=== PATIENT | female | born 1980 | race Caucasian/White ===

== ENCOUNTER 2018-08-20 09:51 | Inpatient (IN) | payer OTHER ==
[~2018-08-20] VITALS: Ht 154.9 cm; Wt 86.5 kg
[2018-08-20 09:59] VITALS: Ht 154.9 cm; Wt 86.5 kg
[2018-08-20] MEDS ORDERED: ONDANSETRON (ODT) 4 MG TAB ODT ONE (10:00)
[2018-08-20] MEDS ORDERED: morphine 4 MG/ML VIAL IM ONE (10:00)
[2018-08-20] MEDS ORDERED: ONDANSETRON 4 MG INJ IV STA (10:06)
[2018-08-20] MEDS ORDERED: morphine 4 MG/ML VIAL IV STA (10:06)
[2018-08-20] MEDS ORDERED: morphine 10 MG INJ IV STA (10:08)
[2018-08-20] MEDS ORDERED: morphine 10 MG INJ ONE (10:11)
--- NOTE | 2018-08-20 10:20 | ERD ---
ER Documentation Chief Complaint Chief Complaint BIBA, R ANKLE PAIN D/T TRIPPED FEW MIN AGO, CRYING HPI 37-year-old female with a history of developmental delay presents for a mechanical fall. Patient turned her right ankle, presents brought in by EMS in tears. She had no abrasions or lacerations. She is nonverbal at baseline, history limited, majority of history was obtained from family member. ROS All systems reviewed and are negative except as per history of present illness. Medications Home Meds Reported Medications Oxcarbazepine* (Oxcarbazepine*) 600 Mg Tablet, 1200 MG PO QPM, TAB 08/20/18 Oxcarbazepine* (Oxcarbazepine*) 600 Mg Tablet, 600 MG PO QAM, TAB 08/20/18 Zonisamide* (Zonisamide*) 100 Mg Capsule, 300 MG PO BID, CAP 08/20/18 Alendronate Sodium* (Fosamax*) 70 Mg Tablet, 70 MG PO Q SUN, #4 TAB 08/20/18 Ergocalciferol (Vitamin D2) (VITAMIN D2) 50,000 Unit Capsule, 19845 UNIT PO Q SUN, CAP 08/20/18 Lamotrigine* (Lamictal* XR) 25 Mg Tab.er.24, 25 MG PO BID, TAB 08/20/18 Lamotrigine* (Lamictal*) 200 Mg Tablet, 200 MG PO BID, TAB 08/20/18 Allergies Allergies: Coded Allergies: No Known Allergy (Unverified , 08/20/18) Physical Exam Vitals Vital Signs Date Temp Pulse Resp B/P (MAP) Pulse Ox O2 O2 Flow FiO2 Time Delivery Rate 08/20/18 98.8 90 22 127/54 99 09:59 (78) Physical Exam Const: [Well-developed, well-nourished, abnormal facises noted, Head: Atraumatic Eyes: Normal conjunctiva ENT: Normal external ears, nose and mouth. Neck: Resp: Normal respiratory effort Cardio: Abd: Skin: Back: Ext: There is swelling and tenderness over the ankle, on the lateral and medial side, there is no tenderness of the knee. Pulses intact distally, there is no abrasions or lacerations, compartments are soft and easily compressible. There is no foot tenderness, Neur: Awake and alert Psych: Normal mood and affect Results 24 hrs Current Medications Medications Dose Sig/Latasha Start Time Status Last (Trade) Ordered Route PRN Stop Time Admin Dose Reason Admin Morphine 6 mg ONCE ONCE 08/20/18 DC Sulfate IM 10:00 (morphine) 08/20/18 10:08 Ondansetron 4 mg ONCE ONCE 08/20/18 DC HCl (Zofran ODT 10:00 Odt) 08/20/18 10:08 Morphine 4 mg ONCE STAT 08/20/18 DC Sulfate IV 10:06 (morphine) 08/20/18 10:10 Ondansetron 4 mg ONCE STAT 08/20/18 DC 08/20/18 HCl (Zofran IV 10:06 10:12 Inj) 08/20/18 10:09 Morphine 6 mg ONCE STAT 08/20/18 DC 08/20/18 Sulfate IV 10:08 10:12 (morphine) 08/20/18 10:10 Morphine 10 mg STK-MED 08/20/18 DC Sulfate ONCE .ROUTE 10:11 (morphine) 08/20/18 10:12 25 mg ONCE STAT 08/20/18 DC 08/20/18 Diphenhydrami IV 10:42 10:49 ne HCl 08/20/18 10:45 (Benadryl) 50 mg STK-MED 08/20/18 DC Diphenhydrami ONCE .ROUTE 10:45 ne HCl 08/20/18 10:46 (Benadryl) Procedures/MDM 37-year-old female presents for evaluation of ankle pain status post mechanical fall. Patient has no neurovascular deficits, her x-ray is consistent with distal fibula and tibia. X-ray Ankle 3V Interpreted by me: Bones: There is a notable distal fibula and tibia fracture, with mild displacement Joints: No dislocation Foreign Body: None EKG: Indication: Preop assessment. Rate/Rhythm: Normal Sinus Rhythm QRS, ST, T-waves: T wave inversions noted inferiorly no changes consistent w/ acute ischemia Impression: No evidence of ischemia or arrhythmia Splint Assessment: Neurovascularly intact post splint placement with good fit. Total 12:02 PM: Case discussed with orthopedic surgeon business solutions director, recommended admission for likely open reduction, with internal fixation. Patient will be admitted to [facility] Care Team: Current data and ongoing care discussed. Primary: Hospitalist Consulting: Lashaun Outstanding Data: none Departure Diagnosis: Primary Impression: Ankle fracture Encounter type: initial encounter Fracture type: closed Laterality: right Qualified Codes: S82.891A - Other fracture of right lower leg, initial encounter for closed fracture Condition: Stable SHAUNA ARMSTRONG MD Aug 20, 2018 10:20
[2018-08-20] MEDS ORDERED: DIPHENHYDRAMINE 50 MG INJ IV STA (10:42)
[2018-08-20] MEDS ORDERED: DIPHENHYDRAMINE 50 MG INJ ONE (10:45)
[2018-08-20] MEDS ORDERED: LAMO25TA6 PO (11:31)
[2018-08-20] MEDS ORDERED: LAMO200T3 PO (11:31)
[2018-08-20] MEDS ORDERED: ALEN70TA5 PO (11:32)
[2018-08-20] MEDS ORDERED: ERGO500013 PO (11:32)
[2018-08-20] MEDS ORDERED: ZONI100C48 PO (11:33)
[2018-08-20] MEDS ORDERED: OXCA600T30 PO ×2 (11:35)
[2018-08-20] MEDS ORDERED: ONDANSETRON 4 MG INJ IV PRN ×2 (12:30→13:30)
[2018-08-20] MEDS ORDERED: ACETAMINOPHEN 325 MG TAB PO PRN ×2 (12:30→13:30)
--- NOTE | 2018-08-20 12:37 | CONS ---
Assessment/Plan Assessment/Plan Hospital Course (Demo Recall) 37-year-old female with medical history significant for develop mental delay and seizures with a right trimalleolar ankle fracture. The fracture is minimally displaced, however, the fracture is an unstable pattern. Discussed nonoperative and operative treatments with the mother. I recommended operative fixation of the medial and lateral malleolus in order to obtain a stable ankle joint. The patient secondary to severe developmental delay will likely not be able to be compliant with weightbearing restrictions. Therefore fixation with casting will be the best option for her. Reviewed the benefits and risks with the mother which include but not limited to medical complications, anesthesia complications, nonunion, malunion, hardware failure, neurovascular injury, need to remove hardware, infection, bleeding. She understood these and wished to proceed with surgery. The hospitalist service is admitting the patient and will proceed appropriate work-up for medical optimization. Will plan on open reduction internal fixation of the right ankle fracture tomorrow around 1 PM pending or availability N.p.o. at midnight Elevate and ice Pain control Nonweightbearing right lower extremity Consultation Date/Type/Reason Admit Date/Time Date of Consultation: Aug 20, 2018 Reason for Consultation Right ankle fracture Date/Time of Note DATE: 08/20/18 TIME: 12:29 Hx of Present Illness 29-year-old female medical history significant for developmental delay and seizures presented to the emergency department today after ground-level fall. Her mom brought her to the emergency room secondary to increased pain. The patient is nonverbal. The patient does walk without any assistance or gait aids at baseline. Patient requires full-time care secondary to developmental delay. Patient was found to have a right trimalleolar ankle fracture. Orthopedics was consulted. Patient seizures are relatively well controlled now. Her last se izure was 6 months ago which is much less frequent than prior history. Unable to ask patient further history of present illness questions including pain level, location, and sensation secondary to patient's nonverbal status. Per the mom there is no known syndrome. Unable to obtain secondary to patient's developmental delay Past Medical History Developmental delay Seizures Home Meds Reported Medications Oxcarbazepine* (Oxcarbazepine*) 600 Mg Tablet, 1200 MG PO QPM, TAB 08/20/18 Oxcarbazepine* (Oxcarbazepine*) 600 Mg Tablet, 600 MG PO QAM, TAB 08/20/18 Zonisamide* (Zonisamide*) 100 Mg Capsule, 300 MG PO BID, CAP 08/20/18 Alendronate Sodium* (Fosamax*) 70 Mg Tablet, 70 MG PO Q SUN, #4 TAB 08/20/18 Ergocalciferol (Vitamin D2) (VITAMIN D2) 50,000 Unit Capsule, 75442 UNIT PO Q SUN, CAP 08/20/18 Lamotrigine* (Lamictal* XR) 25 Mg Tab.er.24, 25 MG PO BID, TAB 08/20/18 Lamotrigine* (Lamictal*) 200 Mg Tablet, 200 MG PO BID, TAB 08/20/18 Medications Current Medications Ondansetron HCl (Zofran Inj) 4 mg BRIDGE ORDER PRN IV NAUSEA/VOMITING; Start 08/20/18 at 12:30; Stop 08/21/18 at 12:29 Acetaminophen (Tylenol Tab) 650 mg ER BRIDGE PRN PO .MILD PAIN 1-3 OR TEMP; Start 08/20/18 at 12:30; Stop 08/21/18 at 12:29 Allergies: Coded Allergies: No Known Allergy (Unverified , 08/20/18) Past Surgical History Spine surgery at 8 months old Family History Significant Family History: no pertinent family hx Social History Alcohol Use: none Smoking Status: Never smoker Drug Use: none Exam/Review of Systems Exam Vitals Vital Signs Date Temp Pulse Resp B/P (MAP) Pulse Ox O2 O2 Flow FiO2 Time Delivery Rate 08/20/18 98.8 77 20 106/45 100 Room Air 12:22 (65) Exam General: Awake, alert, in no acute distress, pleasant and cooperative Heart: regular rhythm Lungs: breathing comfortably, no tachypnea or dyspnea MUSCULOSKELETAL: Right lower extremity: Skin is intact. There is swelling and ecchymosis along the medial lateral aspect of the ankle. There is tenderness palpation throughout the ankle. There is brisk cap refill. Unable to test motor and sensation secondary to patient's inability to follow commands and communicate. Imaging Imaging 3 views of the right knee, 2 views of the right tib-fib, 3 views of the right ankle, 3 views of the right foot were personally reviewed. Demonstrate a trimalleolar fracture with minimally displaced distal fibula fracture, minimally displaced transverse medial malleolus fracture, minimally displaced and small posterior malleolus fracture. The fibula fracture is at the level of the syndesmosis, Mortensen B. Syndesmosis appears to be intact on x-ray. There is slight widening of the medial clear space. Otherwise the tibial talar joint is well reduced. Medications Medication Current Medications Ondansetron HCl (Zofran Inj) 4 mg BRIDGE ORDER PRN IV NAUSEA/VOMITING; Start 08/20/18 at 12:30; Stop 08/21/18 at 12:29 Acetaminophen (Tylenol Tab) 650 mg ER BRIDGE PRN PO .MILD PAIN 1-3 OR TEMP; Start 08/20/18 at 12:30; Stop 08/21/18 at 12:29 JAYCEE BERRIOS MD Aug 20, 2018 12:37
--- NOTE | 2018-08-20 13:01 | HP ---
Date/Time of Note Date/Time of Note DATE: 08/20/18 TIME: 13:00 Assessment/Plan VTE Prophylaxis Pharmacological prophylaxis: NA/contraindicated Pharm contraindication: surgical contra Lines/Catheters [facility] Saline Lock Assessment/Plan Hospital Course 37-year-old female with comorbidities including seizure disorder, obesity, and developmental delay who had a mechanical fall with resultant right trimalleolar ankle fracture, who will be admitted to inpatient setting for further treatment and evaluation. 1. Right trimalleolar ankle fracture. Status post evaluation by orthopedic surgery who recommended open reduction internal fixation. Continue pain control. Continue nonweightbearing of the right lower extremity. 2. Seizure disorder. Resume the patient's anticonvulsants. Seizure precautions. 3. Obesity. BMI 37 kg/m. Obtain hemoglobin A1c, thyroid panel, and lipid panel. 4. Developmental delay. Continue supportive care. Plan: The patient will be admitted to inpatient medical surgical floor. The patient will be started on a regular diet. The patient will be started on DVT prophylaxis. The patient will remain a full code. Activities will be bedrest. The rest of the patient's management will be based on the clinical course, inputs from consultants, and the results of diagnostic studies. Based on the patient's clinical presentation, she most probably requires more than 2 midnights' stay for further management and evaluation of her clinical presentation. The patient was seen in collaboration with Dr. Merrill. Result Diagram: 08/20/18 1001 Results 24hrs Laboratory Tests Test 08/20/18 10:01 White Blood Count 11.1 H Red Blood Count 3.98 L Hemoglobin 12.0 Hematocrit 37.1 Mean Corpuscular Volume 93.2 Mean Corpuscular Hemoglobin 30.2 Mean Corpuscular Hemoglobin Concent 32.3 Red Cell Distribution Width 13.3 Platelet Count 296 Mean Platelet Volume 12.7 H Immature Granulocytes % 0.900 H Neutrophils % 76.6 Lymphocytes % 14.9 L Monocytes % 6.6 Eosinophils % 0.6 Basophils % 0.4 Nucleated Red Blood Cells % 0.0 Immature Granulocytes # 0.100 H Neutrophils # 8.5 H Lymphocytes # 1.7 Monocytes # 0.7 Eosinophils # 0.1 Basophils # 0.0 Nucleated Red Blood Cells # 0.0 Prothrombin Time 13.1 Prothrombin Time Ratio 1.0 INR International Normalized Ratio 0.98 HPI/ROS Admit Date/Time Admit Date/Time Hx of Present Illness This is a 37-year-old female with underlying history of seizure disorder and who is developmentally delayed. The patient had a a mechanical fall at home with impact to the right lower extremity. The patient was brought to the emergency room by paramedics. There was no reported head trauma. The patient has impaired speech and therefore details were obtained by talking to the patient's mother and by reviewing the ER records. The patient's radiographic findings showed acute mildly comminuted displaced distal fibula fracture at the level of the angle of mortise along with acute mildly displaced medial and posterior mal leolus fracture. The patient was evaluated by orthopedic surgery in the emergency room and recommended surgical repair. ROS Subjective hx not possible: pt non-verbal PMH/Family/Social Past Medical History 1. Developmentally delayed. 2. Seizure disorder. 3. Obesity. Medications Current Medications Ondansetron HCl (Zofran Inj) 4 mg BRIDGE ORDER PRN IV NAUSEA/VOMITING; Start 08/20/18 at 12:30; Stop 08/21/18 at 12:29 Acetaminophen (Tylenol Tab) 650 mg ER BRIDGE PRN PO .MILD PAIN 1-3 OR TEMP; Start 08/20/18 at 12:30; Stop 08/21/18 at 12:29 Coded Allergies: No Known Allergy (Unverified , 08/20/18) Past Surgical History 1. Abdominal surgery. Family History Significant Family History: no pertinent family hx Social History The patient is developmentally delayed and her mother takes care of her. Alcohol Use: none Smoking Status: Never smoker Drug Use: none Exam/Review of Systems Vital Signs Vitals Vital Signs Date Temp Pulse Resp B/P (MAP) Pulse Ox O2 O2 Flow FiO2 Time Delivery Rate 08/20/18 98.8 77 20 106/45 100 Room Air 12:22 (65) Exam Exam General: Obese 37 year-old female lying in bed in no apparent distress. HEENT: Atraumatic. Eyes: Anicteric sclerae, conjunctivae clear. ENT: Nasal septum is midline, oral mucosa is dry. Poor dentition. Neck: Short neck. Respiratory: Bilaterally clear breath sounds. No use of accessory muscles of respiration. No adventitious breath sounds. Cardiovascular: S1, S2 heard. Regular rate and rhythm. Abdomen: Soft, nontender, and nondistended. Bowel sounds positive in all 4 quadrants. Genitourinary: Deferred. Extremities: No cyanosis, no clubbing. Right lower extremity plaster cast in place. Peripheral pulses palpable. Neurologic: The patient is awake and alert. Developmentally delayed. Incomprehensible speech/sounds. Skin: Normal skin turgor. No skin rashes. Additional Comments XR Right Tibia & Fibula IMPRESSION: 1. Acute comminuted mildly displaced distal fibular fracture at the level of the ankle mortise. 2. Acute mildly displaced medial and posterior malleolar fractures. 3. Significant soft tissue swelling. HOMER QUINN NP Aug 20, 2018 13:01
[2018-08-20] MEDS ORDERED: morphine 2 MG INJ IV PRN (13:30)
[2018-08-20] MEDS ORDERED: NACL 0.9% 3 ML SYG IV SCH (13:30)
[2018-08-20 13:51] VITALS: BP 102/66; PULSE 77; RESP 17
--- NOTE | 2018-08-20 15:55 | RADRPT ---
Vent Rate: 74 bpm RR Interval: 812 msec MO Interval: 198 msec QRS Duration: 89 msec QT Interval: 412 msec QTC Interval: 457 msec P-R-T [place]: 45 - 42 - 53 degrees Sinus rhythm...normal P axis, V-rate 50- 99 Low voltage, precordial leads...precordial leads <1.0mV Electronically Signed By: Bharat Arcos
[2018-08-20 20:11] VITALS: BP 104/55; PULSE 77; RESP 18
[2018-08-20] MEDS: LAMOTRIGINE 100 MG TAB PO SCH (22:06)
[2018-08-20] MEDS: ZONISAMIDE 100 MG CAP PO SCH (22:06)
[2018-08-20] MEDS: OXCARBAZEPINE 300 MG TAB PO SCH (22:47)
[2018-08-21 01:39] VITALS: BP 102/59; PULSE 82; RESP 18
[2018-08-21 08:21] VITALS: BP 106/73; PULSE 73; RESP 17
[2018-08-21] MEDS: OXCARBAZEPINE 300 MG TAB PO SCH ×2 (09:39→21:29)
[2018-08-21] MEDS: ZONISAMIDE 100 MG CAP PO SCH ×2 (09:40→21:30)
[2018-08-21] MEDS: LAMOTRIGINE 100 MG TAB PO SCH ×2 (09:40→21:29)
[2018-08-21 15:00] VITALS: BP 124/66; PULSE 65; RESP 17
--- NOTE | 2018-08-21 15:23 | PN ---
Date/Time of Note Date/Time of Note DATE: 08/21/18 TIME: 15:19 Assessment/Plan VTE Prophylaxis Risk score (from Ns)>0 risk: 11 SCD applied (from Ns): No SCD contraindicated: other Pharmacological prophylaxis: other (plan for surgery) Lines/Catheters IV [facility] Peripheral IV Urinary Cath still in place: Yes Reason Cath still needed: other (indicate) (monitor I&O) Assessment/Plan Hospital Course 1. Right trimalleolar ankle fracture. plan for open reduction internal fixation per sureon Continue analgesics nonweightbearing of the right lower extremity. 2. Seizure disorder. continue anticonvulsants. Seizure precautions. 3. Obesity. BMI 37 kg/m. 4. Developmental delay. Continue supportive care. Disposition and plan. Was plan for surgery today however fluoroscopy not available. Will place n.p.o. after midnight. Tentative plan for surgical intervention August 22, 2018. Discussed POC with Dr. Nash Result Diagram: 08/21/18 0506 08/21/18 0506 Results 24hrs Laboratory Tests Test 08/21/18 05:06 White Blood Count 11.1 H Red Blood Count 3.73 L Hemoglobin 11.1 L Hematocrit 34.1 L Mean Corpuscular Volume 91.4 Mean Corpuscular Hemoglobin 29.8 Mean Corpuscular Hemoglobin Concent 32.6 Red Cell Distribution Width 13.2 Platelet Count 276 Mean Platelet Volume 11.9 H Immature Granulocytes % 0.500 H Neutrophils % 81.3 H Lymphocytes % 11.1 L Monocytes % 6.7 Eosinophils % 0.1 Basophils % 0.3 Nucleated Red Blood Cells % 0.0 Immature Granulocytes # 0.050 H Neutrophils # 9.0 H Lymphocytes # 1.2 Monocytes # 0.7 Eosinophils # 0.0 Basophils # 0.0 Nucleated Red Blood Cells # 0.0 Sodium Level 139 Potassium Level 4.1 Chloride Level 111 H Carbon Dioxide Level 19 L Anion Gap 9 Blood Urea Nitrogen 13 Creatinine 0.49 Est Glomerular Filtrat Rate mL/min > 60 Glucose Level 130 Calcium Level 9.1 Phosphorus Level 2.7 Magnesium Level 1.8 Total Bilirubin 0.3 Direct Bilirubin 0.00 Indirect Bilirubin 0.3 Aspartate Amino Transf (AST/SGOT) 18 Alanine Aminotransferase (ALT/SGPT) 17 Alkaline Phosphatase 100 Total Protein 7.5 Albumin 4.1 Globulin 3.40 H Albumin/Globulin Ratio 1.20 Triglycerides Level 123 Cholesterol Level 182 LDL Cholesterol, Calculated 111 HDL Cholesterol 46 Cholesterol/HDL Ratio 3.9 Subjective 24 Hr Interval Summary Free Text/Dictation Alert appears to be confused at baseline. Likely from her known developmental delay. No signs or symptoms of pain at this time. Family at bedside. Exam/Review of Systems Exam Vitals Vital Signs Date Temp Pulse Resp B/P (MAP) Pulse Ox O2 O2 Flow FiO2 Time Delivery Rate 08/21/18 97.7 65 17 124/66 96 Room Air 15:00 (85) Intake and Output 08/20/18 08/20/18 08/21/18 1515:00 23:00 07:00 IntakeIntake Total 360 ml OutputOutput Total 750 ml 850 ml BalanceBalance -390 ml -850 ml Constitutional: alert; No oriented Respiratory: clear to auscultation, normal air movement Cardiovascular: regular rate and rhythm Gastrointestinal: soft Musculoskeletal: other (rle with dressing) Results Results 24hrs Laboratory Tests Test 08/21/18 05:06 White Blood Count 11.1 H Red Blood Count 3.73 L Hemoglobin 11.1 L Hematocrit 34.1 L Mean Corpuscular Volume 91.4 Mean Corpuscular Hemoglobin 29.8 Mean Corpuscular Hemoglobin Concent 32.6 Red Cell Distribution Width 13.2 Platelet Count 276 Mean Platelet Volume 11.9 H Immature Granulocytes % 0.500 H Neutrophils % 81.3 H Lymphocytes % 11.1 L Monocytes % 6.7 Eosinophils % 0.1 Basophils % 0.3 Nucleated Red Blood Cells % 0.0 Immature Granulocytes # 0.050 H Neutrophils # 9.0 H Lymphocytes # 1.2 Monocytes # 0.7 Eosinophils # 0.0 Basophils # 0.0 Nucleated Red Blood Cells # 0.0 Sodium Level 139 Potassium Level 4.1 Chloride Level 111 H Carbon Dioxide Level 19 L Anion Gap 9 Blood Urea Nitrogen 13 Creatinine 0.49 Est Glomerular Filtrat Rate mL/min > 60 Glucose Level 130 Calcium Level 9.1 Phosphorus Level 2.7 Magnesium Level 1.8 Total Bilirubin 0.3 Direct Bilirubin 0.00 Indirect Bilirubin 0.3 Aspartate Amino Transf (AST/SGOT) 18 Alanine Aminotransferase (ALT/SGPT) 17 Alkaline Phosphatase 100 Total Protein 7.5 Albumin 4.1 Globulin 3.40 H Albumin/Globulin Ratio 1.20 Triglycerides Level 123 Cholesterol Level 182 LDL Cholesterol, Calculated 111 HDL Cholesterol 46 Cholesterol/HDL Ratio 3.9 Medications Medication Current Medications Lamotrigine (Lamictal) 200 mg BID PO Last administered on 08/21/18 09:40; Admin Dose 200 MG; Start 08/20/18 at 21:00 Oxcarbazepine (Trileptal) 1,200 mg QPM PO Last administered on 08/20/18at 22:47; Admin Dose 1,200 MG; Start 08/20/18 at 21:00 Oxcarbazepine (Trileptal) 600 mg QAM PO Last administered on 08/21/18at 09:39; Admin Dose 600 MG; Start 08/21/18 at 09:00 Zonisamide (Zonegran) 300 mg BID PO Last administered on 08/21/18 09:40; Admin Dose 300 MG; Start 08/20/18 at 21:00 IV Flush (NS 3 ml) 3 ml PER PROTOCOL IV ; Start 08/20/18 at 13:30 Ondansetron HCl (Zofran Inj) 4 mg Q6H PRN IV NAUSEA/VOMITING; Start 08/20/18 at 13:30 Acetaminophen (Tylenol Tab) 650 mg Q6H PRN PO .PAIN 1-3 OR TEMP; Start 08/20/18 at 13:30 Acetaminophen/ Hydrocodone Bitart ([place] (5/325)) 1 tab Q6H PRN PO .MOD PAIN 4- 6; Start 08/20/18 at 13:30 Morphine Sulfate (morphine) 2 mg Q4H PRN IV .SEVERE PAIN 7-10 Last administered on 08/21/18 09:31; Admin Dose 2 MG; Start 08/20/18 at 13:30 MI VERA NP Aug 21, 2018 15:23
[2018-08-21 19:46] VITALS: BP 105/60; PULSE 84; RESP 17
[2018-08-22] VITALS (15 sets, daily range): BP systolic 104–131; BP diastolic 54–80; PULSE 80–106; RESP 17–22
[2018-08-22] MEDS: ZONISAMIDE 100 MG CAP PO SCH ×2 (09:00→23:56)
[2018-08-22] MEDS: OXCARBAZEPINE 300 MG TAB PO SCH ×2 (09:00→23:55)
[2018-08-22] MEDS: LAMOTRIGINE 100 MG TAB PO SCH ×2 (09:00→23:55)
--- NOTE | 2018-08-22 11:33 | PN ---
Date/Time of Note Date/Time of Note DATE: 08/22/18 TIME: 11:31 Assessment/Plan VTE Prophylaxis Risk score (from Ns)>0 risk: 11 SCD applied (from Ns): No SCD contraindicated: other Pharmacological prophylaxis: other (plan for surgery today ) Lines/Catheters IV [facility] Type [facility]from [facility] [place] Urinary Cath still in place: Yes Reason Cath still needed: other (indicate) (monitor I&O) Assessment/Plan Hospital Course 1. Right trimalleolar ankle fracture. plan for open reduction internal fixation per surgeon Continue analgesics nonweightbearing of the right lower extremity. 2. Seizure disorder. continue anticonvulsants. Seizure precautions. 3. Obesity. BMI 37 kg/m. 4. Developmental delay. Continue supportive care. Disposition and plan. . Tentative plan for surgical intervention August 22, 2018. continue pain management and supportive care. check AM labs Discussed POC with Dr. Nash Result Diagram: 08/22/18 0538 08/22/18 0538 Results 24hrs Laboratory Tests Test 08/22/18 05:38 White Blood Count 10.0 Red Blood Count 4.04 L Hemoglobin 12.0 Hematocrit 37.4 Mean Corpuscular Volume 92.6 Mean Corpuscular Hemoglobin 29.7 Mean Corpuscular Hemoglobin Concent 32.1 Red Cell Distribution Width 13.3 Platelet Count 277 Mean Platelet Volume 12.4 H Immature Granulocytes % 1.300 H Neutrophils % 65.0 Lymphocytes % 21.5 Monocytes % 10.6 Eosinophils % 1.1 Basophils % 0.5 Nucleated Red Blood Cells % 0.0 Immature Granulocytes # 0.130 H Neutrophils # 6.5 Lymphocytes # 2.2 Monocytes # 1.1 H Eosinophils # 0.1 Basophils # 0.1 Nucleated Red Blood Cells # 0.0 Sodium Level 139 Potassium Level 3.7 Chloride Level 107 Carbon Dioxide Level 22 Anion Gap 10 Blood Urea Nitrogen 14 Creatinine 0.59 Est Glomerular Filtrat Rate mL/min > 60 Glucose Level 102 Calcium Level 8.6 Subjective 24 Hr Interval Summary Free Text/Dictation alert, family at bedside. no s/s of distress Exam/Review of Systems Exam Vitals Vital Signs Date Temp Pulse Resp B/P (MAP) Pulse Ox O2 O2 Flow FiO2 Time Delivery Rate 08/22/18 97.8 82 20 109/62 99 07:42 (78) 08/21/18 Room Air 15:00 Intake and Output 08/21/18 08/21/18 08/22/18 1515:00 23:00 07:00 IntakeIntake Total 120 ml OutputOutput Total 300 ml 250 ml BalanceBalance 120 ml -300 ml -250 ml Constitutional: alert; No oriented Head: normocephalic Eyes: nl conjunctiva Respiratory: clear to auscultation, normal air movement Cardiovascular: other (regular rate ) Gastrointestinal: soft, non-tender Musculoskeletal: other (rle dressing in place ) Neurological: No nl mental status Results Results 24hrs Laboratory Tests Test 08/22/18 05:38 White Blood Count 10.0 Red Blood Count 4.04 L Hemoglobin 12.0 Hematocrit 37.4 Mean Corpuscular Volume 92.6 Mean Corpuscular Hemoglobin 29.7 Mean Corpuscular Hemoglobin Concent 32.1 Red Cell Distribution Width 13.3 Platelet Count 277 Mean Platelet Volume 12.4 H Immature Granulocytes % 1.300 H Neutrophils % 65.0 Lymphocytes % 21.5 Monocytes % 10.6 Eosinophils % 1.1 Basophils % 0.5 Nucleated Red Blood Cells % 0.0 Immature Granulocytes # 0.130 H Neutrophils # 6.5 Lymphocytes # 2.2 Monocytes # 1.1 H Eosinophils # 0.1 Basophils # 0.1 Nucleated Red Blood Cells # 0.0 Sodium Level 139 Potassium Level 3.7 Chloride Level 107 Carbon Dioxide Level 22 Anion Gap 10 Blood Urea Nitrogen 14 Creatinine 0.59 Est Glomerular Filtrat Rate mL/min > 60 Glucose Level 102 Calcium Level 8.6 Medications Medication Current Medications Lamotrigine (Lamictal) 200 mg BID PO Last administered on 08/21/18at 21:29; Admin Dose 200 MG; Start 08/20/18 at 21:00 Oxcarbazepine (Trileptal) 1,200 mg QPM PO Last administered on 08/21/18 21:29; Admin Dose 1,200 MG; Start 08/20/18 at 21:00 Oxcarbazepine (Trileptal) 600 mg QAM PO Last administered on 08/21/18at 09:39; Admin Dose 600 MG; Start 08/21/18 at 09:00 Zonisamide (Zonegran) 300 mg BID PO Last administered on 08/21/18 21:30; Admin Dose 300 MG; Start 08/20/18 at 21:00 IV Flush (NS 3 ml) 3 ml PER PROTOCOL IV ; Start 08/20/18 at 13:30 Ondansetron HCl (Zofran Inj) 4 mg Q6H PRN IV NAUSEA/VOMITING; Start 08/20/18 at 13:30 Acetaminophen (Tylenol Tab) 650 mg Q6H PRN PO .PAIN 1-3 OR TEMP; Start 08/20/18 at 13:30 Acetaminophen/ Hydrocodone Bitart ([place] (5/325)) 1 tab Q6H PRN PO .MOD PAIN 4- 6; Start 08/20/18 at 13:30 Morphine Sulfate (morphine) 2 mg Q4H PRN IV .SEVERE PAIN 7-10 Last administered on 08/21/18at 09:31; Admin Dose 2 MG; Start 08/20/18 at 13:30 MI VERA NP Aug 22, 2018 11:33
[2018-08-22] MEDS ORDERED: GLYCOPYRROLATE 0.4 MG INJ ONE (12:10)
[2018-08-22] MEDS ORDERED: DESFLURANE 15 MIN ONE (12:10)
[2018-08-22] MEDS ORDERED: DEXAMETHASONE 4 MG/ML 5 ML INJ ONE (12:10)
[2018-08-22] MEDS ORDERED: NEOSTIGMINE 3 MG/3 ML SYRINGE ONE (12:10)
[2018-08-22] MEDS ORDERED: ROCURONIUM 50 MG INJ ONE (12:10)
[2018-08-22] MEDS ORDERED: CEFAZOLIN 1 GM INJ ONE (12:10)
[2018-08-22] MEDS ORDERED: FENTAnyl 50 MCG/ML VIAL ONE ×3 (12:10→20:40)
[2018-08-22] MEDS ORDERED: ONDANSETRON 4 MG INJ ONE (12:10)
[2018-08-22] MEDS ORDERED: PROPOFOL 20 ML ONE (12:10)
[2018-08-22] MEDS ORDERED: MIDAZOLAM 1 MG/ML 2 ML INJ ONE (12:10)
[2018-08-22] MEDS ORDERED: ROPIVACAINE 0.5 % 30 ML VIAL ONE (12:11)
--- NOTE | 2018-08-22 16:31 | HPN ---
Date/Time of Note Date/Time of Note DATE: 08/22/18 TIME: 16:30 Interval H&P Admission Note Pt. seen H&P reviewed: No system changes MUSCULOSKELETAL: Right lower extremity Splint is clean, dry, intact. Unable to do a proper neurovascular examination secondary to patient's severe developmental delay. Patient does spontaneously wiggle toes. Brisk cap refill. JAYCEE BERRIOS MD Aug 22, 2018 16:31
--- NOTE | 2018-08-22 16:44 | PREAC ---
Date/Time of Note Date/Time of Note DATE: 08/22/18 TIME: 16:43 Anesthesia Eval and Record Evaluation Time Pre-Procedure Interview DATE: 08/22/18 TIME: 16:43 Age 37 Sex female NPO: 8 hrs Preoperative diagnosis right trimalleolar fracture Planned procedure ORIF OF RIGHT ANKLE TRIM. FX Past Medical History Past Medical History: Includes Neuro: Seizure disorder, Other (DEVELOPMENTAL DELAY) GI: Obesity Surgery & Anesthesia Issues No known issue Meds Anticoagulation: No Beta Marimar within 24 hr: No Reason Beta Marimar not given: Pt. not on B-Marimar Reported Medications Oxcarbazepine* (Oxcarbazepine*) 600 Mg Tablet, 1200 MG PO QPM, TAB 08/20/18 Oxcarbazepine* (Oxcarbazepine*) 600 Mg Tablet, 600 MG PO QAM, TAB 08/20/18 Zonisamide* (Zonisamide*) 100 Mg Capsule, 300 MG PO BID, CAP 08/20/18 Alendronate Sodium* (Fosamax*) 70 Mg Tablet, 70 MG PO Q SUN, #4 TAB 08/20/18 Ergocalciferol (Vitamin D2) (VITAMIN D2) 50,000 Unit Capsule, 70222 UNIT PO Q SUN, CAP 08/20/18 Lamotrigine* (Lamictal* XR) 25 Mg Tab.er.24, 25 MG PO BID, TAB 08/20/18 Lamotrigine* (Lamictal*) 200 Mg Tablet, 200 MG PO BID, TAB 08/20/18 Current Medications Lamotrigine (Lamictal) 200 mg BID PO Last administered on 08/21/18at 21:29; Admin Dose 200 MG; Start 08/20/18 at 21:00 Oxcarbazepine (Trileptal) 1,200 mg QPM PO Last administered on 08/21/18at 21:29; Admin Dose 1,200 MG; Start 08/20/18 at 21:00 Oxcarbazepine (Trileptal) 600 mg QAM PO Last administered on 08/21/18at 09:39; Admin Dose 600 MG; Start 08/21/18 at 09:00 Zonisamide (Zonegran) 300 mg BID PO Last administered on 08/21/18at 21:30; Admin Dose 300 MG; Start 08/20/18 at 21:00 IV Flush (NS 3 ml) 3 ml PER PROTOCOL IV ; Start 08/20/18 at 13:30 Ondansetron HCl (Zofran Inj) 4 mg Q6H PRN IV NAUSEA/VOMITING; Start 08/20/18 at 13:30 Acetaminophen (Tylenol Tab) 650 mg Q6H PRN PO .PAIN 1-3 OR TEMP; Start 08/20/18 at 13:30 Acetaminophen/ Hydrocodone Bitart ([place] (5/325)) 1 tab Q6H PRN PO .MOD PAIN 4- 6; Start 08/20/18 at 13:30 Morphine Sulfate (morphine) 2 mg Q4H PRN IV .SEVERE PAIN 7-10 Last administered on 08/21/18at 09:31; Admin Dose 2 MG; Start 08/20/18 at 13:30 Meds reviewed: Yes Allergies Coded Allergies: No Known Allergy (Unverified , 08/20/18) Allergies Reviewed: Yes Labs/Studies Labs Reviewed: Reviewed by anesthesiologist Result Diagram: 08/22/18 0538 08/22/18 0538 Laboratory Tests 08/22/18 05:38 test: Negative Studies: ECG (LOW VOLTAGE), CXR (NAPD) Pre-procedure Exam Last vitals Vital Signs Date Temp Pulse Resp B/P (MAP) Pulse Ox O2 O2 Flow FiO2 Time Delivery Rate 08/22/18 98.7 90 20 128/80 95 14:29 (96) 08/21/18 Room Air 15:00 Airway: Adequate mouth opening, Adequate thyromental dist Mallampati: Mallampati II Teeth: Normal Lung: Normal Heart: Normal ASA Physical Status ASA physical status: 2 Emergency: None Planned Anesthetic General/MAC: ETT Nerve block: Femoral (right), Sciatic (right) Planned Pain Management Single shot nerve block, Parenteral pain med Pre-operative Attestations Prior to commencing anesthesia and surgery, the patient was re-evaluated, there was verification of: *The patient's identity *The results of appropriate recent lab work and preoperative vital signs *The above evaluation not changing prior to induction *Anesthetic plan, risk benefits, alternative and complications discussed with patient/family; questions answered; patient/family understands, accepts and wishes to proceed. Philip Dennis M.D. Aug 22, 2018 16:44
[2018-08-22] MEDS ORDERED: LABETALOL HCL 20MG INJ IV PRN (17:00)
[2018-08-22] MEDS ORDERED: ALBUTEROL 0.083% (NEB) 2.5 MG/3 ML AMP HHN PRN (17:00)
[2018-08-22] MEDS ORDERED: MIDAZOLAM 1 MG/ML 2 ML INJ IV PRN (17:00)
[2018-08-22] MEDS ORDERED: IPRATROPIUM (NEB) 0.5 MG/2.5 ML AMP HHN PRN (17:00)
[2018-08-22] MEDS ORDERED: hydrALAzine 20 MG INJ IV PRN (17:00)
[2018-08-22] MEDS ORDERED: HYDROmorphONE 1 MG/5 ML IV SYRINGE IV PRN ×3 (17:00)
[2018-08-22] MEDS ORDERED: MEPERIDINE 25 MG INJ IV PRN (17:00)
[2018-08-22] MEDS ORDERED: OXYCODONE/ACETAMINOPHEN (5/325) TAB PO PRN ×2 (17:00)
[2018-08-22] MEDS ORDERED: FENTAnyl 50 MCG/ML VIAL IV PRN ×3 (17:00)
[2018-08-22] MEDS ORDERED: DIPHENHYDRAMINE 50 MG INJ IV PRN (17:00)
[2018-08-22] MEDS ORDERED: ONDANSETRON 4 MG INJ IV PRN (17:00)
[2018-08-22] MEDS ORDERED: EPHEDrine 25 MG/5 ML SYG IV PRN (17:00)
[2018-08-22] MEDS ORDERED: TRIMETHOBENZAMIDE 100 MG/ML VIAL IM PRN (17:00)
[2018-08-22] MEDS ORDERED: POLYMYXIN/BACITRACIN 1L IRRIG IRR ONE (18:44)
--- NOTE | 2018-08-22 22:33 | OPR ---
Date/Time of Note Date/Time of Note DATE: 08/22/18 TIME: 22:14 Operative Report Procedure Date: Aug 22, 2018 Preoperative Diagnosis Right trimalleolar ankle fracture Postoperative Diagnosis As above Operation/Procedure Performed Open reduction internal fixation of lateral malleolus and medial malleolus Intraoperative use of fluoroscopy Application of short leg fiberglass cast Surgeon see signature line Mdm Developer None Anesthesia Type: general Tourniquet Time: 120 Estimated Blood Loss: 0 - 10 ml's Transfusion none Specimen None Grafts/Implants [place] 4 hole distal lateral fibular plate 4.0 cannulated screws Complications none Pt Condition Post Procedure: stable Disposition: PACU Procedure Description Indications and consent: This is a 37-year-old female who unfortunately has severe developmental delay. She is nonverbal and cannot follow instructions. Her mother takes full care of her. She is completely dependent. She was walking Tuesday when she fell and twisted her ankle. Her mom knows she is in severe pain and has swelling and inability to walk. Prior to the fall the patient had no difficulty walking and walked all the time. They prevented the emergency department. Patient was diagnosed with a closed trimalleolar ankle fracture. Given the trimalleolar ankle fracture pattern this was unstable fracture pattern. I reviewed treatment options with patient's mother. Including nonoperative and operative. I felt that although the fracture is minimally displaced casting or long would not provide enough stability for the patient to heal. The patient would likely weight-bear through a cast given that she cannot follow instructions. Therefore recommended open reduction internal fixation followed by casting. I reviewed the benefits and risks with the patient's mother including but not limited to medical complications, anesthesia complications, nonunion, malunion, hardware failure, infection, injury to blood vessels and nerves, injury to muscles and tendons, symptomatic hardware, arthritis, need for further surgery. She understood these and wished to proceed with the procedure. I also discussed with the mother that given the patient's mental capacity it be very difficult to do a cast change in clinic and I am recommending return to the operating room for light sedation in order to perform a cast change and suture removal. This will occurred approximately 3 weeks postop. Procedure in detail: The patient was brought to the operating room. She was transferred from the hospital bed to the operating table. She was then given general anesthesia followed by regional block. The right lower extremity was prepped and draped in normal sterile fashion. A nonsterile tourniquet was placed prior to prepping and draping. A timeout was performed confirming patient's name, medical record number, diagnosis, procedure to be performed, and laterality procedure. 2 g of Ancef was dosed. At this time the extremity was exsanguinated with an Esmarch and the tourniquet was inflated to 250 mmHg. Fluoroscopy was used to oc out the joint line as well as the distal proximal extent of the fracture. The incision was marked along the fibula. A 10 cm incision was made along the fibula centered over the fracture. Sharp dissection was carried down to bone distally as this is safe. Proximally the deeper tissues were dissected using Metzenbaum scissors. The superficial peroneal nerve was not encountered. The fracture was identified. It was a large oblique segment going from posterior superior to anterior inferior. It was noted that the distal fibular diaphysis was extraordinarily small and the AP diameter. It was about two thirds the diameter of the plate. The fracture site was cleaned with a 15 blade. The fracture site was irrigated and hematoma was removed. The fracture is anatomically reduced with [id number] reduction clamp at this time a 3.5 mm lag screw by technique was placed. This lag screw had moderate purchase. Given the size of the oblique fragment is decided to attempt a second lag screw by technique. This was done however the purchase was less than ideal. The fracture was stable and the [id number] reduction clamps were removed. It was decided given the soft bone as well as only moderate purchase of the lag screws a distal fibular locking plate would be used. A 4 hole distal fibular locking plate fit very nicely. A contoured the fibula perfectly required no additional bending. This was K wire in place. Position was confirmed on fluoroscopy both AP and lateral. A distal nonlocking screw was placed followed by a nonlocking screw proximally to compress the plate down to bone. This was followed by 2 more unicortical screws in the distal fibula. These were placed as locking screws. 3 additional proximal screw holes were filled. Positioning of hardware was confirmed on AP and lateral. At this time attention turned towards the medial malleolus. A 5 cm incision was made over the medial malleolus. Dissection was carried down carefully to the fracture. The medial malleolus was extremely small. There was significant comminution of the medial cortex of the proximal portion of the medial malleolus the bone was very soft. Good compression cannot be obtained without malreduction. The fracture site was irrigated and all hematoma was removed. A dental pick was used to hold gentle reduction. A guidepin for the 4.0 cannulated screws was used to place a pin in the posterior colliculus. This was done under fluoroscopy confirming the position that it was not entering the joint. This was aimed anteriorly as well. A second pin was placed in parallel in the anterior colliculus. Fluoroscopy confirmed anatomic reduction of the medial malleolus on AP, mortise view, lateral. The near cortex was then drilled after measuring the guidepins. The appropriate length 4.0 partially-threaded cannulated screws were placed over the guide pins. Fluoroscopy again confirmed anatomic reduction. Guide pins removed. Of note a washer was placed for the posterior screw given the comminution and poor quality bone. Tourniquet was deflated. Tourniquet was up from 120 minutes. Lateral and medial incisions were closely irrigated. Deep layer was closed with 0 Vicryl in interrupted [id number] fashion. Subcutaneous tissues were closed with 2-0 Vicryl in interrupted fashion. The medial wound was closed with 2-0 Vicryl interrupted fashion. The skin was closed with 2-0 nylon vertical ma ttress sutures. The wounds were dressed with Xeroform, 4 x 4's, ABD, soft roll. All counts were correct x2. A stockinette was placed over the lower extremity followed by soft roll. Care was taken to pad bony problems including the heel and malleoli. Soft roll was placed from the distal foot up until the knee. 4 inch fiberglass roll was used to fashion a short leg fiberglass cast. Stockinette was folded back over the fiberglass followed by another layer of fiberglass. The ankle was kept in neutral during the cast application. Disposition: Patient was extubated transferred to PACU stable condition. She will likely be discharged home tomorrow or the following day. She is nonweightbearing on the right lower extremity. However it is unlikely she will be able to follow these instructions. I discussed the family that they need to try his hardest possible to advance her from walking too much on right lower extremity. I will see her in clinic in approximately 2 weeks for x-rays. If everything looks as expected we will return to the operating room at 3 weeks for removal of cast and sutures and reapplication of a short leg cast. This will be done as I do not believe the patient will tolerate removal of the cast and suture removal in clinic and reapplication of the cast. JAYCEE BERRIOS MD Aug 22, 2018 22:32
[2018-08-22] MEDS: CEFAZOLIN 2 GM/50 ML (PMX) 50 ML IVPB SCH (23:56)
[2018-08-23 00:05] VITALS: BP 110/60; PULSE 72; RESP 18
[2018-08-23] MEDS: CEFAZOLIN 2 GM/50 ML (PMX) 50 ML IVPB SCH ×2 (05:58→14:47)
[2018-08-23 07:25] VITALS: BP 112/64; PULSE 96; RESP 18
--- NOTE | 2018-08-23 07:50 | PN ---
Date/Time of Note Date/Time of Note DATE: 08/23/18 TIME: 07:48 Assessment/Plan Lines/Catheters IV Catheter Type (from Nrsg): Peripheral IV Rider in Place (from Nrsg): Yes Assessment/Plan Chief Complaint/Hosp Course 29-year-old female with severe developmental delay postop day #1 status post open reduction internal fixation right lateral and medial malleolar fracture. Per the mother the patient seems to be comfortable this morning with no significant pain. Continue postoperative antibiotics x24 hours from surgery SCDs and DVT prophylaxis while admitted. Nonweightbearing right lower extremity Physical therapy/Occupational Therapy Pain control Elevation of right lower extremity Discharge planningexpect discharge home today versus tomorrow. We will see the patient office in approximately 2 weeks Subjective 24 Hr Interval Summary Patient doing well No acute events overnight Pain is well controlled Exam/Review of Systems Vital Signs Vitals Vital Signs Date Temp Pulse Resp B/P (MAP) Pulse Ox O2 O2 Flow FiO2 Time Delivery Rate 08/23/18 97.6 96 18 112/64 97 Room Air 07:25 (80) Intake and Output 08/22/18 08/22/18 08/23/18 1515:00 23:00 07:00 IntakeIntake Total 2000 ml 480 ml OutputOutput Total 375 ml 900 ml BalanceBalance 1625 ml -420 ml Exam Free Text/Dictation Right lower extremity: Short leg cast: clean, dry, and intact, no erythema over exposed skin. Brisk cap refill. Detailed neurological examination not possible secondary to patient's inability to follow commands and understand instructions. Results Result Diagram: 08/23/18 0428 08/23/18 0428 JAYCEE BERRIOS MD Aug 23, 2018 07:50
[2018-08-23] MEDS: LAMOTRIGINE 100 MG TAB PO SCH ×2 (08:45→22:20)
[2018-08-23] MEDS: OXCARBAZEPINE 300 MG TAB PO SCH ×2 (08:45→22:20)
[2018-08-23] MEDS: ZONISAMIDE 100 MG CAP PO SCH ×2 (08:45→21:00)
[2018-08-23] MEDS ORDERED: ASPIRIN (EC) 81 MG TAB PO SCH (09:00)
--- NOTE | 2018-08-23 09:14 | PAC ---
Date/Time of Note Date/Time of Note DATE: 08/23/18 TIME: 09:14 Post-Anesthesia Notes Post-Anesthesia Note Last documented vital signs Vital Signs Date Temp Pulse Resp B/P (MAP) Pulse Ox O2 O2 Flow FiO2 Time Delivery Rate 08/23/18 97.6 96 18 112/64 97 Room Air 07:25 (80) Activity: WNL Respiratory function: WNL Cardiovascular function: WNL Mental status: Baseline Pain reasonably controlled: Yes Hydration appropriate: Yes Nausea/Vomiting absent: Yes Philip Dennis M.D. Aug 23, 2018 09:14
--- NOTE | 2018-08-23 11:58 | PN ---
Date/Time of Note Date/Time of Note DATE: 08/23/18 TIME: 11:53 Assessment/Plan VTE Prophylaxis Risk score (from Ns)>0 risk: 5 SCD applied (from Ns): No SCD contraindicated: other Pharmacological prophylaxis: LMWH Lines/Catheters IV [facility] (from [facility]): Peripheral IV Urinary Cath still in place: Yes Reason Cath still needed: other (indicate) (monitor I&O) Assessment/Plan Hospital Course 1. Right trimalleolar ankle fracture. s/p Open reduction internal fixation of lateral malleolus and medial malleolus/Application of short leg fiberglass cast Continue analgesics physical therapy following 2. Seizure disorder. continue anticonvulsants. Seizure precautions. 3. Obesity. BMI 37 kg/m. 4. Developmental delay. Continue supportive care. Disposition and plan. . continue physical therapy. Will plan for ARU eval. Discussed POC with Dr. Nash Result Diagram: 08/23/1842708/23/18427 Results 24hrs Laboratory Tests Test 08/23/18 04:28 White Blood Count 12.3 #H Red Blood Count 3.69 L Hemoglobin 11.1 L Hematocrit 33.8 L Mean Corpuscular Volume 91.6 Mean Corpuscular Hemoglobin 30.1 Mean Corpuscular Hemoglobin Concent 32.8 Red Cell Distribution Width 13.2 Platelet Count 285 Mean Platelet Volume 12.4 H Immature Granulocytes % 1.100 H Neutrophils % 86.2 H Lymphocytes % 6.5 L Monocytes % 6.0 Eosinophils % 0.0 Basophils % 0.2 Nucleated Red Blood Cells % 0.0 Immature Granulocytes # 0.130 H Neutrophils # 10.7 H Lymphocytes # 0.8 Monocytes # 0.7 Eosinophils # 0.0 Basophils # 0.0 Nucleated Red Blood Cells # 0.0 Sodium Level 140 Potassium Level 3.9 Chloride Level 110 Carbon Dioxide Level 19 L Anion Gap 11 Blood Urea Nitrogen 11 Creatinine 0.49 Est Glomerular Filtrat Rate mL/min > 60 Glucose Level 125 Calcium Level 8.3 L Subjective 24 Hr Interval Summary Free Text/Dictation resting during visit. no acute distress seen. Exam/Review of Systems Exam Vitals Vital Signs Date Temp Pulse Resp B/P (MAP) Pulse Ox O2 O2 Flow FiO2 Time Delivery Rate 08/23/18 97.6 96 18 112/64 97 Room Air 07:25 (80) Intake and Output 08/22/18 08/22/18 08/23/18 1515:00 23:00 07:00 IntakeIntake Total 2000 ml 480 ml OutputOutput Total 375 ml 900 ml BalanceBalance 1625 ml -420 ml Exam Constitutional: alert; No oriented Head: normocephalic Eyes: nl conjunctiva Respiratory: clear to auscultation, normal air movement Cardiovascular: other (regular rate ) Gastrointestinal: soft, non-tender Musculoskeletal: other (rle dressing in place ) Neurological: No nl mental status Results Results 24hrs Laboratory Tests Test 08/23/18 04:28 White Blood Count 12.3 #H Red Blood Count 3.69 L Hemoglobin 11.1 L Hematocrit 33.8 L Mean Corpuscular Volume 91.6 Mean Corpuscular Hemoglobin 30.1 Mean Corpuscular Hemoglobin Concent 32.8 Red Cell Distribution Width 13.2 Platelet Count 285 Mean Platelet Volume 12.4 H Immature Granulocytes % 1.100 H Neutrophils % 86.2 H Lymphocytes % 6.5 L Monocytes % 6.0 Eosinophils % 0.0 Basophils % 0.2 Nucleated Red Blood Cells % 0.0 Immature Granulocytes # 0.130 H Neutrophils # 10.7 H Lymphocytes # 0.8 Monocytes # 0.7 Eosinophils # 0.0 Basophils # 0.0 Nucleated Red Blood Cells # 0.0 Sodium Level 140 Potassium Level 3.9 Chloride Level 110 Carbon Dioxide Level 19 L Anion Gap 11 Blood Urea Nitrogen 11 Creatinine 0.49 Est Glomerular Filtrat Rate mL/min > 60 Glucose Level 125 Calcium Level 8.3 L Medications Medication Current Medications Lamotrigine (Lamictal) 200 mg BID PO Last administered on 08/23/18at 08:45; Admin Dose 200 MG; Start 08/20/18 at 21:00 Oxcarbazepine (Trileptal) 1,200 mg QPM PO Last administered on 08/22/18at 23:55; Admin Dose 1,200 MG; Start 08/20/18 at 21:00 Oxcarbazepine (Trileptal) 600 mg QAM PO Last administered on 08/23/18at 08:45; Admin Dose 600 MG; Start 08/21/18 at 09:00 Zonisamide (Zonegran) 300 mg BID PO Last administered on 08/23/18at 08:45; Admin Dose 300 MG; Start 08/20/18 at 21:00 IV Flush (NS 3 ml) 3 ml PER PROTOCOL IV ; Start 08/20/18 at 13:30 Ondansetron HCl (Zofran Inj) 4 mg Q6H PRN IV NAUSEA/VOMITING; Start 08/20/18 at 13:30 Acetaminophen (Tylenol Tab) 650 mg Q6H PRN PO .PAIN 1-3 OR TEMP; Start 08/20/18 at 13:30 Acetaminophen/ Hydrocodone Bitart ([place] (5/325)) 1 tab Q6H PRN PO .MOD PAIN 4- 6; Start 08/20/18 at 13:30 Morphine Sulfate (morphine) 2 mg Q4H PRN IV .SEVERE PAIN 7-10 Last administered on 08/21/18at 09:31; Admin Dose 2 MG; Start 08/20/18 at 13:30 Aspirin (Halfprin) 81 mg BID PO Last administered on 08/23/18at 08:45; Admin Dose 81 MG; Start 08/23/18 at 09:00 Cefazolin Sodium/ Dextrose 50 ml @ 100 mls/hr Q8 IVPB Last administered on 08/23/18at 05:58; Admin Dose 100 MLS/HR; Start 08/22/18 at 22:00; Stop 08/23/18 at 14:29 MI VERA NP Aug 23, 2018 11:58
[2018-08-23] MEDS ORDERED: ENOXAPARIN 40 MG/0.4 ML SYG SC SCH (12:00)
[2018-08-23 14:20] VITALS: BP 116/56; PULSE 99; RESP 20
[2018-08-23] MEDS: HYDROCODONE/APAP (5/325) TAB PO PRN (15:41)
[2018-08-23] MEDS ORDERED: NAPHAZOLINE 0.012% 15 ML OPH BOTH EYES PRN (17:00)
[2018-08-23 20:12] VITALS: BP 122/66; PULSE 87; RESP 18
[2018-08-23] MEDS: ENOXAPARIN 40 MG/0.4 ML SYG SC SCH (22:22)
[2018-08-23] MEDS: ZONISAMIDE 25 MG CAP PO SCH (23:00)
[2018-08-24 03:26] VITALS: BP 120/68; PULSE 90; RESP 18
[2018-08-24] MEDS: HYDROCODONE/APAP (5/325) TAB PO PRN ×3 (05:33→18:21)
[2018-08-24 08:50] VITALS: BP 125/71; PULSE 89; RESP 17
[2018-08-24] MEDS: OXCARBAZEPINE 300 MG TAB PO SCH ×2 (09:12→21:51)
[2018-08-24] MEDS: ZONISAMIDE 25 MG CAP PO SCH ×2 (09:13→21:50)
[2018-08-24] MEDS: LAMOTRIGINE 100 MG TAB PO SCH ×2 (09:13→21:51)
[2018-08-24] MEDS ORDERED: POTASSIUM CHLORIDE (SR) 20 MEQ TAB PO STA (10:52)
--- NOTE | 2018-08-24 13:31 | PN ---
Date/Time of Note Date/Time of Note DATE: 08/24/18 TIME: 13:30 Assessment/Plan VTE Prophylaxis Risk score (from Ns)>0 risk: 9 SCD applied (from Ns): No SCD contraindicated: other Pharmacological prophylaxis: LMWH Lines/Catheters IV Catheter Type (from Nrs): Peripheral IV Urinary Cath still in place: No Assessment/Plan Hospital Course 1. Right trimalleolar ankle fracture. s/p Open reduction internal fixation of lateral malleolus and medial malle olus/Application of short leg fiberglass cast Continue analgesics physical therapy following 2. Seizure disorder. continue anticonvulsants. Seizure precautions. 3. Obesity. BMI 37 kg/m. 4. Developmental delay. Continue supportive care. Disposition and plan. . f/u for possible transition to ARU. f/u surgeon recommendations. if no ARU, will see for possible home with [facility] Discussed POC with Dr. Nash Result Diagram: 08/23/18 0428 08/24/18 0423 Results 24hrs Laboratory Tests Test 08/24/18 04:23 Sodium Level 138 Potassium Level 3.3 L Chloride Level 106 Carbon Dioxide Level 23 Anion Gap 9 Blood Urea Nitrogen 12 Creatinine 0.57 Est Glomerular Filtrat Rate mL/min > 60 Glucose Level 101 Calcium Level 7.9 L Subjective 24 Hr Interval Summary Free Text/Dictation no s/s of distress. family at bedside Exam/Review of Systems Exam Vitals Vital Signs Date Temp Pulse Resp B/P (MAP) Pulse Ox O2 O2 Flow FiO2 Time Delivery Rate 08/24/18 98.0 89 17 125/71 95 Room Air 08:50 (89) Intake and Output 08/23/18 08/23/18 08/24/18 1515:00 23:00 07:00 IntakeIntake Total 170 ml OutputOutput Total 300 ml BalanceBalance -300 ml 170 ml Exam Constitutional: alert; No oriented Head: normocephalic Eyes: nl conjunctiva Respiratory: clear to auscultation, normal air movement Cardiovascular: other (regular rate ) Gastrointestinal: soft, non-tender Musculoskeletal: other (rle dressing in place ) Neurological: No nl mental status Results Results 24hrs Laboratory Tests Test 08/24/18 04:23 Sodium Level 138 Potassium Level 3.3 L Chloride Level 106 Carbon Dioxide Level 23 Anion Gap 9 Blood Urea Nitrogen 12 Creatinine 0.57 Est Glomerular Filtrat Rate mL/min > 60 Glucose Level 101 Calcium Level 7.9 L Medications Medication Current Medications Lamotrigine (Lamictal) 200 mg BID PO Last administered on 08/24/18 09:13; Admin Dose 200 MG; Start 08/20/18 at 21:00 Oxcarbazepine (Trileptal) 1,200 mg QPM PO Last administered on 08/23/18 22:20; Admin Dose 1,200 MG; Start 08/20/18 at 21:00 Oxcarbazepine (Trileptal) 600 mg QAM PO Last administered on 08/24/18 09:12; Admin Dose 600 MG; Start 08/21/18 at 09:00 IV Flush (NS 3 ml) 3 ml PER PROTOCOL IV ; Start 08/20/18 at 13:30 Ondansetron HCl (Zofran Inj) 4 mg Q6H PRN IV NAUSEA/VOMITING; Start 08/20/18 at 13:30 Acetaminophen (Tylenol Tab) 650 mg Q6H PRN PO .PAIN 1-3 OR TEMP; Start 08/20/18 at 13:30 Acetaminophen/ Hydrocodone Bitart ([place] (5/325)) 1 tab Q6H PRN PO .MOD PAIN 4- 6 Last administered on 08/24/18 12:22; Admin Dose 1 TAB; Start 08/20/18 at 13:30 Morphine Sulfate (morphine) 2 mg Q4H PRN IV .SEVERE PAIN 7-10 Last administered on 08/21/18 09:31; Admin Dose 2 MG; Start 08/20/18 at 13:30 Enoxaparin Sodium (Lovenox) 40 mg QHS SC Last administered on 08/23/18 22:22; Admin Dose 40 MG; Start 08/23/18 at 21:00 Zonisamide (Zonegran) 300 mg BID PO Last administered on 08/24/18 09:13; Admin Dose 300 MG; Start 08/23/18 at 23:00 MI VERA NP Aug 24, 2018 13:31
--- NOTE | 2018-08-24 14:54 | PN ---
Date/Time of Note Date/Time of Note DATE: 08/24/18 TIME: 14:54 Assessment/Plan Lines/Catheters IV Catheter Type (from Nrsg): Peripheral IV Rider in Place (from Nrsg): No Assessment/Plan Chief Complaint/Hosp Course 29-year-old female with severe developmental delay postop day #2 status post open reduction internal fixation right lateral and medial malleolar fracture. Per the mother the patient seems to be comfortable this morning with no significant pain. SCDs and DVT prophylaxis while admitted. Nonweightbearing right lower extremity Physical therapy/Occupational Therapy Pain control Elevation of right lower extremity Discharge planning - discharge home today We will see the patient office in approximately 2 weeks Subjective 24 Hr Interval Summary Patient doing well No acute events overnight Pain is well controlled Exam/Review of Systems Vital Signs Vitals Vital Signs Date Temp Pulse Resp B/P (MAP) Pulse Ox O2 O2 Flow FiO2 Time Delivery Rate 08/24/18 98.0 89 17 125/71 95 Room Air 08:50 (89) Intake and Output 08/23/18 08/23/18 08/24/18 1515:00 23:00 07:00 IntakeIntake Total 170 ml OutputOutput Total 300 ml BalanceBalance -300 ml 170 ml Exam Free Text/Dictation Right lower extremity: Short leg cast: clean, dry, and intact, no erythema over exposed skin. Brisk cap refill. Detailed neurological examination not possible secondary to patient's inability to follow commands and understand instructions. Results Result Diagram: 08/23/18 0428 08/24/18 0423 JAYCEE BERRIOS MD Aug 24, 2018 14:54
[2018-08-24 15:16] VITALS: BP 113/67; PULSE 78; RESP 18
[2018-08-24 19:45] VITALS: BP 123/57; PULSE 89; RESP 18
[2018-08-24] MEDS: ENOXAPARIN 40 MG/0.4 ML SYG SC SCH (21:54)
[2018-08-25 02:54] VITALS: BP 111/66; PULSE 88; RESP 18
[2018-08-25 07:27] VITALS: BP 121/62; PULSE 78; RESP 19
[2018-08-25] MEDS: ZONISAMIDE 25 MG CAP PO SCH (08:49)
[2018-08-25] MEDS: OXCARBAZEPINE 300 MG TAB PO SCH (08:49)
[2018-08-25] MEDS: LAMOTRIGINE 100 MG TAB PO SCH (08:49)
[2018-08-25] MEDS: HYDROCODONE/APAP (5/325) TAB PO PRN (08:53)
[2018-08-25] MEDS ORDERED: HYDR-3601 PO (11:05)
--- NOTE | 2018-08-25 11:27 | PDOCDIS ---
Discharge Instructions DIAGNOSIS Discharge Diagnosis 1. Right trimalleolar ankle fracture. 2. Seizure disorder. 3. Obesity. BMI 37 kg/m. 4. Developmental delay. CONDITION [id number] Patient Condition: [id number] Stable HOME CARE INSTRUCTIONS: [id number] Diet Instructions: [id number] Low Fat /Cholesterol ACTIVITY: [id number] Activity Restrictions: [id number] Slowly Increase Activity Rest between Activity Avoid heavy lifting Do not Drive Avoid Heavy Housework [id number] Bathing Restrictions: [id number] Tub Bath FOLLOW UP/APPOINTMENTS Follow-up Plan Call and make an appointment to Follow up with Dr. Tyrone Wilks in one week Office Address [id number] [place] [id number] Office MI VERA NP Aug 25, 2018 11:27
--- NOTE | 2018-08-25 21:21 | DS ---
Date/Time of Note Date/Time of Note DATE: 08/25/18 TIME: 21:21 Discharge Summary Admission/Discharge Info Admit Date/Time Aug 20, 2018 at 12:09 Discharge Date/Time Aug 25, 2018 at 15:10 Discharge Diagnosis 1. Right trimalleolar ankle fracture. 2. Seizure disorder. 3. Obesity. BMI 37 kg/m. 4. Developmental delay. Patient Condition: Stable Hospital Course This is a 37-year-old female with history of seizure disorder and developmental delay who came to the hospital after suffering a mechanical fall at home with impact to the right lower extremity. Patient was brought to the hospital. There is no reports of head trauma. Patient did have imaging of right lower extremity that did show acute mildly comminuted displaced distal fibula fracture at the level of the angle of mortise along with acute mildly displaced medial and posterior malleolus fracture.. Patient was consulted by orthopedic surgeon. She did undergo open reduction internal fixation of lateral malleolus and medial malleolus. There is also application of short leg fiberglass cast. We did get the patient physical therapy. Due to patient's mental cognition and also limited mobility patient and family were offered possible transfer to snf facility versus acute rehab unit. After discussion with family it was noted that family will be able to take care of patient at home with home health services. She was otherwise optimized medically with anticonvulsants for history of seizures. We did continue supportive care for the patient. During the course of stay she did improve. The plan of care was discussed with the patient's family and they verbalized understanding. On the day of discharge patient was in stable condition Discussed POC with Dr. Nash [place] Meds Active Scripts Hydrocodone Bit-Acetaminophen (Hydrocodone Bit-APAP) 5-325MG Tablet, 1 TAB PO Q6H PRN for .MOD PAIN 4-6, #30 TAB Prov:MI VERA [employer] 08/25/18 Reported Medications Oxcarbazepine* (Oxcarbazepine*) 600 Mg Tablet, 1200 MG PO QPM, TAB 08/20/18 Oxcarbazepine* (Oxcarbazepine*) 600 Mg Tablet, 600 MG PO QAM, TAB 08/20/18 Zonisamide* (Zonisamide*) 100 Mg Capsule, 300 MG PO BID, CAP 08/20/18 Alendronate Sodium* (Fosamax*) 70 Mg Tablet, 70 MG PO Q SUN, #4 TAB 08/20/18 Ergocalciferol (Vitamin D2) (VITAMIN D2) 50,000 Unit Capsule, 40300 UNIT PO Q SUN, CAP 08/20/18 Lamotrigine* (Lamictal*) 200 Mg Tablet, 200 MG PO BID, TAB 08/20/18 Discontinued Reported Medications Lamotrigine* (Lamictal* XR) 25 Mg Tab.er.24, 25 MG PO BID, TAB 08/20/18 Follow-up Plan Call and make an appointment to Follow up with Dr. Tyrone Wilks in one week Office Address [id number] [place] [address] [address] [place] [address] Office Primary Care Provider [facility] Time spent on discharge: > 30 minutes Pending Labs Laboratory Tests Test 08/25/18 04:32 White Blood Count 8.9 10^3/ul (4.8-10.8) Red Blood Count 3.69 10^6/ul (4.20-5.40) Hemoglobin 11.1 g/dl (12.0-16.0) Hematocrit 34.2 % (37.0-47.0) Mean Corpuscular Volume 92.7 fl (82.0-101.0) Mean Corpuscular Hemoglobin 30.1 pg (29.0-33.0) Mean Corpuscular Hemoglobin Concent 32.5 g/dl (32.0-37.0) Red Cell Distribution Width 13.3 % (11.5-14.5) Platelet Count 289 10^3/UL (140-415) Mean Platelet Volume 12.3 fl (7.4-10.4) Immature Granulocytes % 1.900 % (0.001-0.429) Neutrophils % 66.6 % (39.0-77.0) Lymphocytes % 18.0 % (15.0-51.0) Monocytes % 11.7 % (0.0-11.0) Eosinophils % 1.2 % (0.0-7.0) Basophils % 0.6 % (0.0-2.0) Nucleated Red Blood Cells % 0.0 /100WBC (0.0-0.0) Immature Granulocytes # 0.170 10^3/ul (0.0-0.031) Neutrophils # 5.9 10^3/ul (1.6-7.5) Lymphocytes # 1.6 10^3/ul (0.8-2.9) Monocytes # 1.0 10^3/ul (0.3-0.9) Eosinophils # 0.1 10^3/ul (0.0-0.5) Basophils # 0.1 10^3/ul (0.0-0.1) Nucleated Red Blood Cells # 0.0 10^3/ul (0.0-0.0) Sodium Level 138 mmol/L (135-144) Potassium Level 3.6 mmol/L (3.5-5.1) Chloride Level 106 mmol/L (97-110) Carbon Dioxide Level 22 mmol/L (21-31) Anion Gap 10 (5-13) Blood Urea Nitrogen 13 mg/dl (7-20) Creatinine 0.49 mg/dl (0.44-1.00) Est Glomerular Filtrat Rate mL/min > 60 mL/min (>60) Glucose Level 108 mg/dl (70-220) Calcium Level 8.1 mg/dl (8.4-10.2) MI VERA NP Aug 25, 2018 21:21
== END 2018-08-25 15:10 | disposition home health service (06) | DRG 494 ==
LOC: E/R 09:51 → 2NE 12:09 → CANRESERV 12:20 → MS1 08-22 22:00
PROVIDERS: ADMIT Internal Medicine; ATTEND Internal Medicine
PROC: 0QSG04Z Reposition Right Tibia with Internal Fixation Device, Open Approach (ICD-10-PCS; 2018-08-22)
PROC: 0QSJ04Z Reposition Right Fibula with Internal Fixation Device, Open Approach (ICD-10-PCS; principal; 2018-08-22 12:30)
DX: S82.851A Displaced trimalleolar fracture of right lower leg, initial encounter for closed fracture (principal); R62.50 Unspecified lack of expected normal physiological development in childhood; E66.9 Obesity, unspecified; Z68.36 Body mass index [BMI] 36.0-36.9, adult; G40.909 Epilepsy, unspecified, not intractable, without status epilepticus
CPT/HCPCS: 71045; 73560; 73590; 73630; 80048; 80053; 80061; 83036; 83735; 84100; 84439; 84443; 84703; 85025; 85610; 93005; 96374; 96375; 97163; 97530; J0690; J1100; J1200; J1650; J2250; J2270; J2405; J2710; J2795; J3010